=== PATIENT | female | born 1995 | race Caucasian/White ===

== ENCOUNTER 2018-08-22 19:27 | Emergency (ER) | payer OTHER | END 2018-08-22 21:25 | disposition home or self-care (01) | LOC: FTE 19:27 | DX: R51 Headache (principal); F07.81 Postconcussional syndrome | CPT/HCPCS: 81025; 99282 ==

== ENCOUNTER 2018-12-02 19:53 | Emergency (ER) | payer OTHER | END 2018-12-02 22:47 | disposition home or self-care (01) | LOC: FTE 19:53 | DX: J02.8 Acute pharyngitis due to other specified organisms (principal); N63.20 Unspecified lump in the left breast, unspecified quadrant; B96.89 Other specified bacterial agents as the cause of diseases classified elsewhere | CPT/HCPCS: 99283 ==